=== PATIENT | male | born 1980 | race African-American/Black ===

== ENCOUNTER 2022-07-07 12:05 | Inpatient (IN) | payer OTHER ==
[2022-07-07] MEDS ORDERED: BUPRENORPHINE HCL 75 MCG FILM BC ONE ×2 (13:02→15:30)
[2022-07-07 15:59] VITALS: BMI 19.9
[2022-07-07] MEDS ORDERED: ACETAMINOPHEN 325 MG TABLET (FP) PO PRN ×2 (16:08)
[2022-07-07] MEDS ORDERED: BENZOCAINE/MENTHOL (CHLORASEPTIC ) LOZENGE MM PRN (16:08)
[2022-07-07] MEDS ORDERED: ONDANSETRON *ODT* 4 MG TABLET SL PRN (16:08)
[2022-07-07] MEDS ORDERED: NALOXONE HCL (KLOXXADO) 8 MG SPRAY NS PRN (16:08)
[2022-07-07] MEDS ORDERED: METHOCARBAMOL 500 MG TABLET PO PRN (16:08)
[2022-07-07] MEDS ORDERED: NICOTINE 10 MG CARTRIDGE (INHALER) IH PRN (16:08)
[2022-07-07] MEDS ORDERED: MAGNESIUM HYDROX 2400MG/30ML ORAL SUSPENSION 30 ML CUP PO PRN (16:08)
[2022-07-07] MEDS ORDERED: IBUPROFEN 600 MG TABLET (FP) PO PRN (16:08)
[2022-07-07] MEDS ORDERED: MAGNESIUM CITRATE 300 ML BOTTLE PO PRN (16:08)
[2022-07-07] MEDS ORDERED: cloNIDine HCL 0.1 MG TABLET PO ONE (16:08)
[2022-07-07] MEDS ORDERED: MAG HYDROX/AL HYDROX/SIMETH 30 ML UNIT-DOSE CUP PO PRN (16:08)
[2022-07-07] MEDS ORDERED: IBUPROFEN 400 MG TABLET (FP) PO PRN (16:08)
[2022-07-07] MEDS ORDERED: LOPERAMIDE HCL 2 MG CAPSULE PO PRN (16:08)
[2022-07-07] MEDS ORDERED: BISMUTH SUBSALICYLATE 524 MG/30 ML PO PRN (16:08)
[2022-07-07] MEDS: hydrOXYzine PAMOATE 25 MG CAPSULE (FP) PO SCH ×2 (17:34→22:29)
[2022-07-07] MEDS ORDERED: BUPRENORPHINE HCL 150 MCG, BUPRENORPHINE HCL 75 MCG BC ONE (18:00)
[2022-07-07] MEDS: NICOTINE 14 MG/24 HOURS TOPICAL PATCH TD SCH (18:23)
[2022-07-07] MEDS: PRENATAL VITAMINS W/ FOLIC ACID TABLET (FP) PO SCH (18:23)
[2022-07-07] MEDS ORDERED: cloNIDine HCL 0.1 MG TABLET PO PRN (20:08)
[2022-07-07] MEDS ORDERED: MELATONIN 5 MG TABLETS PO SCH (22:00)
[2022-07-07] MEDS: THIAMINE HCL 100 MG TABLET (FP) PO SCH (22:29)
[2022-07-08] MEDS: hydrOXYzine PAMOATE 25 MG CAPSULE (FP) PO SCH ×5 (08:28→23:15)
[2022-07-08] MEDS ORDERED: BUPRENORPHINE HCL 150 MCG, BUPRENORPHINE HCL 75 MCG BC PRN (10:00)
[2022-07-08 10:25] LABS: HEMATOCRIT 37.7 % (35.4-49); HEMOGLOBIN 13.2 GM/dL (11.7-16.9); MCH 33.3 pg (25.7-33.7); MEAN CELL VOLUME 95.3 fl (80-96); MEAN PLT VOLUME 6.9 fl (7.5-11.1); PLATELET COUNT 301 10^3/uL (134-434); RBC 3.96 M/mm3 (4.00-5.60); RDW 12.7 % (11.9-15.9)
[2022-07-08] MEDS: BUPRENORPHINE HCL 150 MCG, BUPRENORPHINE HCL 75 MCG BC SCH ×2 (10:51→23:16)
[2022-07-08 10:54] LABS: ALBUMIN 3.6 g/dl (3.4-5.0); BLOOD UREA NITROGEN 12.9 mg/dL (7-18)
[2022-07-08 10:57] LABS: BILIRUBIN,TOTAL 0.6 mg/dL (0.2-1); CREATININE 0.8 mg/dL (0.55-1.3)
[2022-07-08 10:58] LABS: TOT PROT 6.7 g/dl (6.4-8.2)
[2022-07-08] MEDS: PRENATAL VITAMINS W/ FOLIC ACID TABLET (FP) PO SCH (11:00)
[2022-07-08] MEDS: NICOTINE 14 MG/24 HOURS TOPICAL PATCH TD SCH (11:00)
[2022-07-08] MEDS: diazePAM 5 MG TABLET PO PRN (18:40)
[2022-07-08] MEDS ORDERED: traZODone HCL 50 MG TABLET (FP) PO PRN (22:00)
[2022-07-08] MEDS: DICYCLOMINE HCL 10 MG CAPSULE PO PRN (23:15)
[2022-07-08] MEDS: THIAMINE HCL 100 MG TABLET (FP) PO SCH (23:15)
[2022-07-09] MEDS: hydrOXYzine PAMOATE 25 MG CAPSULE (FP) PO SCH ×5 (07:07→22:18)
[2022-07-09] MEDS: BUPRENORPHINE HCL 450 MCG FILM BC SCH ×2 (10:11→22:21)
[2022-07-09] MEDS: NICOTINE 14 MG/24 HOURS TOPICAL PATCH TD SCH (10:13)
[2022-07-09] MEDS: diazePAM 5 MG TABLET PO PRN (10:13)
[2022-07-09] MEDS: PRENATAL VITAMINS W/ FOLIC ACID TABLET (FP) PO SCH (10:13)
[2022-07-09] MEDS: THIAMINE HCL 100 MG TABLET (FP) PO SCH (22:18)
[2022-07-10] MEDS: DICYCLOMINE HCL 10 MG CAPSULE PO PRN (05:44)
[2022-07-10] MEDS: hydrOXYzine PAMOATE 25 MG CAPSULE (FP) PO SCH ×2 (06:25→10:20)
[2022-07-10 09:49] VITALS: BP 127/70; PULSE 50; RESP 17; TEMP 98.4
[2022-07-10] MEDS: PRENATAL VITAMINS W/ FOLIC ACID TABLET (FP) PO SCH (10:19)
[2022-07-10] MEDS: NICOTINE 14 MG/24 HOURS TOPICAL PATCH TD SCH (10:20)
== END 2022-07-10 10:35 | disposition home or self-care (01) | DRG 773 ==
LOC: YASAS 12:05 → Y3N 14:59
PROVIDERS: ADMIT Allergy & Immunology; ATTEND Surgery
PROC: HZ2ZZZZ Detoxification Services for Substance Abuse Treatment (ICD-10-PCS; principal; 2022-07-07)
DX: F11.23 Opioid dependence with withdrawal (principal); F10.230 Alcohol dependence with withdrawal, uncomplicated; F14.20 Cocaine dependence, uncomplicated; F12.20 Cannabis dependence, uncomplicated; F17.210 Nicotine dependence, cigarettes, uncomplicated; F19.282 Other psychoactive substance dependence with psychoactive substance-induced sleep disorder; F19.24 Other psychoactive substance dependence with psychoactive substance-induced mood disorder; F39 Unspecified mood [affective] disorder; Z59.00 Homelessness unspecified
CPT/HCPCS: 36415; 80053; 85027; 86780; C9803-CS; J0735; Q0162; U0003; U0005

== ENCOUNTER 2022-08-03 15:03 | Inpatient (IN) | payer OTHER ==
[2022-08-03 15:33] VITALS: BMI 18.4
[2022-08-03] MEDS ORDERED: IBUPROFEN 400 MG TABLET (FP) PO PRN (17:59)
[2022-08-03] MEDS ORDERED: BENZOCAINE/MENTHOL (CHLORASEPTIC ) LOZENGE MM PRN (17:59)
[2022-08-03] MEDS ORDERED: BUPRENORPHINE HCL 150 MCG, BUPRENORPHINE HCL 75 MCG BC PRN (17:59)
[2022-08-03] MEDS ORDERED: ONDANSETRON *ODT* 4 MG TABLET SL PRN (17:59)
[2022-08-03] MEDS ORDERED: NICOTINE POLACRILEX 2 MG GUM BUC PRN (17:59)
[2022-08-03] MEDS ORDERED: LOPERAMIDE HCL 2 MG CAPSULE PO PRN (17:59)
[2022-08-03] MEDS ORDERED: MAGNESIUM HYDROX 2400MG/30ML ORAL SUSPENSION 30 ML CUP PO PRN (17:59)
[2022-08-03] MEDS ORDERED: NICOTINE 10 MG CARTRIDGE (INHALER) IH PRN (17:59)
[2022-08-03] MEDS ORDERED: MAG HYDROX/AL HYDROX/SIMETH 30 ML UNIT-DOSE CUP PO PRN (17:59)
[2022-08-03] MEDS ORDERED: diazePAM 5 MG TABLET PO PRN (17:59)
[2022-08-03] MEDS ORDERED: IBUPROFEN 600 MG TABLET (FP) PO PRN (17:59)
[2022-08-03] MEDS ORDERED: BISMUTH SUBSALICYLATE 524 MG/30 ML PO PRN (17:59)
[2022-08-03] MEDS ORDERED: MAGNESIUM CITRATE 300 ML BOTTLE PO PRN (17:59)
[2022-08-03] MEDS ORDERED: ACETAMINOPHEN 325 MG TABLET (FP) PO PRN ×2 (17:59)
[2022-08-03] MEDS ORDERED: DICYCLOMINE HCL 10 MG CAPSULE PO PRN (17:59)
[2022-08-03] MEDS ORDERED: BUPRENORPHINE HCL 150 MCG, BUPRENORPHINE HCL 75 MCG BC ONE (17:59)
[2022-08-03] MEDS ORDERED: cloNIDine HCL 0.1 MG TABLET PO ONE (17:59)
[2022-08-03] MEDS ORDERED: NALOXONE HCL (KLOXXADO) 8 MG SPRAY NS PRN (17:59)
[2022-08-03] MEDS ORDERED: METHOCARBAMOL 500 MG TABLET PO PRN (17:59)
[2022-08-03 19:42] VITALS: RESP 18
[2022-08-03] MEDS: hydrOXYzine PAMOATE 25 MG CAPSULE (FP) PO SCH ×2 (19:43→23:06)
[2022-08-03] MEDS: PRENATAL VITAMINS W/ FOLIC ACID TABLET (FP) PO SCH (19:45)
[2022-08-03] MEDS ORDERED: cloNIDine HCL 0.1 MG TABLET PO PRN (21:59)
[2022-08-03] MEDS ORDERED: THIAMINE HCL 100 MG TABLET (FP) PO SCH (22:00)
[2022-08-03] MEDS ORDERED: MELATONIN 5 MG TABLETS PO SCH (22:00)
[2022-08-03] MEDS: NICOTINE 14 MG/24 HOURS TOPICAL PATCH TD SCH (22:04)
[2022-08-03] MEDS: AMOXICILLIN 500 MG CAPSULE (FP) PO SCH (23:06)
[2022-08-03] MEDS: PETROLATUM, WHITE 30 GM TUBE TP SCH (23:06)
[2022-08-03] MEDS: valACYclovir HCL 500 MG TABLET (FP) PO SCH (23:06)
[2022-08-04] MEDS ORDERED: BUPRENORPHINE HCL 150 MCG, BUPRENORPHINE HCL 75 MCG BC PRN
[2022-08-04] MEDS ORDERED: BUPRENORPHINE HCL 150 MCG, BUPRENORPHINE HCL 75 MCG BC SCH (06:00)
[2022-08-04] MEDS: hydrOXYzine PAMOATE 25 MG CAPSULE (FP) PO SCH ×3 (06:45→15:16)
[2022-08-04] MEDS: AMOXICILLIN 500 MG CAPSULE (FP) PO SCH ×2 (06:45→15:16)
[2022-08-04 09:13] VITALS: BP 112/62; PULSE 51; TEMP 97.8
[2022-08-04] MEDS: NICOTINE 14 MG/24 HOURS TOPICAL PATCH TD SCH (10:33)
[2022-08-04] MEDS: PRENATAL VITAMINS W/ FOLIC ACID TABLET (FP) PO SCH (10:33)
[2022-08-04] MEDS: valACYclovir HCL 500 MG TABLET (FP) PO SCH ×2 (10:33→10:46)
[2022-08-04] MEDS: PETROLATUM, WHITE 30 GM TUBE TP SCH (10:33)
[2022-08-05] MEDS ORDERED: BUPRENORPHINE HCL 450 MCG FILM BC SCH (06:00)
[2022-08-06] MEDS ORDERED: BUPRENORPHINE/NALOXONE 4 MG/1 MG FILM PACKET SL SCH (06:00)
[2022-08-07] MEDS ORDERED: BUPRENORPHINE/NALOXONE 8 MG/2 MG FILM PACKET SL ONE (06:00)
== END 2022-08-04 15:42 | disposition short-term general hospital (02) | DRG 773 ==
LOC: YASAS 15:03 → Y3N 19:14
PROVIDERS: ADMIT Allergy & Immunology; ATTEND Surgery
PROC: HZ2ZZZZ Detoxification Services for Substance Abuse Treatment (ICD-10-PCS; principal; 2022-08-03)
DX: F11.23 Opioid dependence with withdrawal (principal); F10.230 Alcohol dependence with withdrawal, uncomplicated; F14.20 Cocaine dependence, uncomplicated; F12.20 Cannabis dependence, uncomplicated; F17.210 Nicotine dependence, cigarettes, uncomplicated; F19.282 Other psychoactive substance dependence with psychoactive substance-induced sleep disorder; F19.24 Other psychoactive substance dependence with psychoactive substance-induced mood disorder; F31.9 Bipolar disorder, unspecified; Z87.438 Personal history of other diseases of male genital organs; Z56.0 Unemployment, unspecified; Z59.01 Sheltered homelessness; Z91.19 Patient's noncompliance with other medical treatment and regimen
CPT/HCPCS: 87811